=== PATIENT | female | born 1990 | race American Indian/Alaskan Native ===

== ENCOUNTER 2021-05-27 09:35 | Outpatient (CLI) | payer BC ==
[2021-05-27 10:35] LABS: Hematocrit 36.7 % (30.3-42.9); Hemoglobin 12.3 gm/dl (10.1-14.3); Mean Corpuscular HGB Conc 34 % (30-34); Mean Corpuscular Volume 94 fl (79-97); Platelet Count 207 K/mm3 (140-440); Red Cell Distribution Width 13.2 % (13.2-15.2)
[2021-05-27 10:53] LABS: Erythrocyte Sedimentation Rate 52 mm/Hr (0-20)
[2021-05-27 10:57] LABS: Alanine Aminotransferase 11 units/L (7-56); Albumin 4.3 g/dL (3.9-5); Blood Urea Nitrogen 10 mg/dL (7-17); Calcium 8.9 mg/dL (8.4-10.2); Hemolysis Index 3
[2021-05-27 10:58] LABS: BUN/Creatinine Ratio 17
== END 2021-05-27 09:36 | disposition home or self-care (01) ==
LOC: LAB 09:35
PROVIDERS: ATTEND Specialist
DX: G35 Multiple sclerosis (principal)
CPT/HCPCS: 36415; 80053; 82306; 82607; 83036; 83921; 84443; 85027; 85652; 86038; 86225; 86592; 86689